=== PATIENT | female | born 1945 | race Caucasian/White ===

== ENCOUNTER 2018-11-21 16:06 | Emergency (ER) | payer MEDICARE ==
[2018-11-21] MEDS ORDERED: Nitroglycerin 0.4 MG TAB 1 EACH ONE ×3 (16:16→18:12)
[2018-11-21] MEDS ORDERED: Aspirin Chewable 81 MG TAB ONE (16:16)
[2018-11-21 16:32] LABS: #Basophils 0.1 thou/uL (0.0-0.2); #Eosinphils 0.1 thou/uL (0.0-0.7); #Lymphocytes 2.3 thou/uL (1.20-3.40); #Monocytes 0.4 thou/uL (0.11-0.59); #Neutrophils 4.6 thou/uL (1.40-6.50); %Basophils 0.8 % (0.0-1.0); %Eosinophils 1.6 % (0.0-10.0); %Lymphocytes 31.2 % (21.0-51.0); %Monocytes 4.9 % (0.0-10.0); %Neutrophils 61.4 % (42.0-75.0); Mean Corpuscular HGB CONC 32.1 g/dL (32.0-36.0); Mean Corpuscular Hemoglobin 29.3 pg (27.0-31.0); Mean Corpuscular Volume 91.3 fL (78.0-98.0); Mean Platelet Volume 6.3 fL (7.4-10.4); Platelet Count 228 thou/uL (130-400); RBC Distribution Width 12.6 % (11.5-14.5); Red Blood Cell (RBC) Count 4.43 mill/uL (4.20-5.40); White Blood Cell (WBC) Count 7.5 thou/uL (4.8-10.8)
[2018-11-21 16:50] LABS: ALT (SGPT) 8 U/L (8-55); AST (SGOT) 10 U/L (5-34); Alkaline Phosphatase 75 U/L (40-150); Anion Gap 14 mmol/L (10-20); BUN (Urea Nitrogen) 13 mg/dL (9.8-20.1); Bilirubin, Total 0.2 mg/dL (0.2-1.2); Calc. Creatinine Clearance 0 mL/min (70-130); Calcium 9.4 mg/dL (7.8-10.44); Carbon Dioxide 27 mmol/L (23-31); Chloride 105 mmol/L (98-107); Estimated GFR-MDRD 86; Glucose 98 mg/dL (83-110); Lipase 13 U/L (8-78); Potassium 3.9 mmol/L (3.5-5.1); Sodium 142 mmol/L (136-145)
--- NOTE | 2018-11-21 21:53 | RAD ---
PORTABLE CHEST: 11/21/18 An AP portable film at 1622 shows a normal sized heart and clear lungs. No infiltrate or effusion was seen. There may be a little bit of scarring in the right apex. There is no vascular congestion or e mary. Calcification is seen in the aortic arch. There is deviation of the trachea towards the right at the thoracic inlet. This implies that the left lobe of the thyroid gland should be checked for possible pathology. IMPRESSION: 1. Arteriosclerotic change but no other acute cardiopulmonary findings. 2. Slight deviation of the trachea at the thoracic inlet. Manual examination of the neck and pos sibly a thyroid ultrasound should be considered to rule out a left lobe mass in the gland. Code T POS: HOME
== END 2018-11-21 18:25 | disposition short-term general hospital (02) ==
LOC: BURERS 16:06
DX: R07.81 Pleurodynia (principal); I10 Essential (primary) hypertension; F17.210 Nicotine dependence, cigarettes, uncomplicated; E78.5 Hyperlipidemia, unspecified; Z79.899 Other long term (current) drug therapy
CPT/HCPCS: 36415; 71045; 80053; 83605; 83690; 84484; 85025; 87040; 93005; 94760

== ENCOUNTER 2019-06-28 10:32 | Emergency (ER) | payer MEDICARE ==
[2019-06-28] MEDS ORDERED: predniSONE 20 MG TAB ONE (11:27)
[2019-06-28] MEDS ORDERED: Azithromycin 250 MG TAB ONE (11:28)
== END 2019-06-28 11:55 | disposition home or self-care (01) ==
LOC: BURERS 10:32
DX: J06.9 Acute upper respiratory infection, unspecified (principal); E78.5 Hyperlipidemia, unspecified; I10 Essential (primary) hypertension; J44.9 Chronic obstructive pulmonary disease, unspecified; F17.210 Nicotine dependence, cigarettes, uncomplicated; Z79.82 Long term (current) use of aspirin; Z79.899 Other long term (current) drug therapy
CPT/HCPCS: J7512; J7620